=== PATIENT | male | born 1990 | race Hispanic/Latino ===

== ENCOUNTER 2018-02-15 01:39 | Emergency (ER) | payer BC ==
--- NOTE | 2018-02-15 01:57 | ER ---
Nurse's Notes [facility] Name: Tevin Daily Age: 28 yrs Sex: Male : 1990 Arrival Date: 02/15/2018 Time: 01:40 Bed 6 Private MD: Diagnosis: Foreign body in ear Presentation: 02/15 01:45 Presenting complaint: Patient states: that there is something in his left ear that fc feels as if it is flying around. Transition of care: patient was not received from another setting of care. Onset of symptoms was February 15, 2018 at 01:15. Risk Assessment: Do you want to hurt yourself or someone else? Patient reports no desire to harm self or others. Initial Sepsis Screen: Does the patient meet any 2 criteria? No. Patient's initial sepsis screen is negative. Does the patient have a suspected source of infection? No. Patient's initial sepsis screen is negative. Care prior to arrival: None. 01:45 Method Of Arrival: Ambulatory 01:45 Acuity: GUIDO 5 Triage Assessment: 01:45 General: Appears uncomfortable, slender, Behavior is calm, cooperative, appropriate for age. Pain: Complains of pain in left ear Pain currently is 7 out of 10 on a pain scale. Quality of pain is described as aching, sharp, Pain began 30 min ago. Is continuous. EENT: Ear canal w/ foreign body noted from left ear Reports pain in left ear. Neuro: Level of Consciousness is awake, alert, obeys commands, Oriented to person, place, time, situation. Cardiovascular: No deficits noted. Respiratory: No deficits noted. GI: No deficits noted. : No deficits noted. Derm: Skin is pink, warm \T\ dry. Musculoskeletal: Circulation, motion, and sensation intact. Capillary refill < 3 seconds. Historical: - Allergies: 01:53 Amoxil; fc - Home Meds: 01:53 None [Active]; fc - PMHx: 01:53 None; fc - PSHx: 01:53 None; fc - Immunization history:: Last tetanus immunization: unknown. - Social history:: Smoking status: Patient/guardian denies using tobacco. - Ebola Screening: : Patient negative for fever greater than or equal to 101.5 degrees Fahrenheit, and additional compatible Ebola Virus Disease symptoms Patient denies exposure to infectious person Patient denies travel to an Ebola-affected area in the 21 days before illness onset. Screenin:45 Abuse screen: Denies threats or abuse. Nutritional screening: No deficits noted. Tuberculosis screening: No symptoms or risk factors identified. Fall Risk None identified. Assessment: 01:52 Reassessment: No changes from previously documented assessment. see triage assessment. Napoleon FULTON is currently at bedside to see and examine pt. 01:53 Reassessment: Napoleon FULTON removed small live bailey from pts left ear. Vital Signs: 01:45 BP 138 / 94; Pulse 66; Resp 18; Temp 98.4(O); Pulse Ox 98% on R/A; Weight 97.52 kg (R); fc Height 5 ft. 11 in. (180.34 cm) (R); Pain 7/10; 01:45 Body Mass Index 29.99 (97.52 kg, 180.34 cm) ED Course: 01:40 Patient arrived in ED. am2 01:45 Arm band placed on Patient placed in an exam room, on a stretcher. 01:45 Patient has correct armband on for positive identification. Bed in low position. Call fc light in reach. 01:45 No provider procedures requiring assistance completed. Patient did not have IV access fc during this emergency room visit. 01:50 Triage completed. 01:53 [facility] jr[facility]ace 01:53 Isiah Elkins MD is Attending Physician. jr8 Administered Medications: No medications were administered Outcome: 01:54 Discharged to home ambulatory. 01:54 Condition: good 01:56 Discharge ordered by jrJace 01:57 Discharge instructions given to patient, Instructed on discharge instructions, follow fc up and referral plans. medication usage, Demonstrated understanding of instructions, follow-up care, medications, Prescriptions given X 1. 02:01 Patient left the ED. Signatures: Bell Ponce RN RN Napoleon Lopez PA PA jr8 Elidia Jacobsen am2 Corrections: (The following items were deleted from the chart) 01:58 01:54 Discharge instructions given to patient, Instructed on discharge instructions, fc follow up and referral plans. Demonstrated understanding of instructions, follow-up care, Prescriptions given X none
--- NOTE | 2018-02-15 01:57 | EDPHYS ---
Physician Documentation [facility] Name: Tevin Daily Age: 28 yrs Sex: Male : 1990 Arrival Date: 02/15/2018 Time: 01:40 Bed 6 Private MD: ED Physician Isiah Elkins HPI: 02/15 01:54 This 28 yrs old Male presents to ER via Ambulatory with complaints of Foreign jr8 Body In Ear. 01:54 Onset: The symptoms/episode began/occurred acutely, today. The patient has not jr8 experienced similar symptoms in the past. The patient has not recently seen a physician. stated that he feels as if a bug is in his ear . Historical: - Allergies: 01:53 Amoxil; fc - Home Meds: 01:53 None [Active]; fc - PMHx: 01:53 None; fc - PSHx: 01:53 None; fc - Immunization history:: Last tetanus immunization: unknown. - Social history:: Smoking status: Patient/guardian denies using tobacco. - Ebola Screening: : Patient negative for fever greater than or equal to 101.5 degrees Fahrenheit, and additional compatible Ebola Virus Disease symptoms Patient denies exposure to infectious person Patient denies travel to an Ebola-affected area in the 21 days before illness onset. ROS: 01:54 Eyes: Negative for injury, pain, redness, and discharge, Neck: Negative for injury, jr8 pain, and swelling, Cardiovascular: Negative for chest pain, palpitations, and edema, Respiratory: Negative for shortness of breath, cough, wheezing, and pleuritic chest pain, Abdomen/GI: Negative for abdominal pain, nausea, vomiting, diarrhea, and constipation, Back: Negative for injury and pain, MS/Extremity: Negative for injury and deformity, Skin: Negative for injury, rash, and discoloration, Neuro: Negative for headache, weakness, numbness, tingling, and seizure. 01:54 ENT: Positive for foreign body sensation. Exam: 01:54 Eyes: Pupils equal round and reactive to light, extra-ocular motions intact. Lids and jr8 lashes normal. Conjunctiva and sclera are non-icteric and not injected. Cornea within normal limits. Periorbital areas with no swelling, redness, or edema. Neck: Trachea midline, no thyromegaly or masses palpated, and no cervical lymphadenopathy. Supple, full range of motion without nuchal rigidity, or vertebral point tenderness. No Meningismus. Cardiovascular: Regular rate and rhythm with a normal S1 and S2. No gallops, murmurs, or rubs. Normal PMI, no JVD. No pulse deficits. Respiratory: Lungs have equal breath sounds bilaterally, clear to auscultation and percussion. No rales, rhonchi or wheezes noted. No increased work of breathing, no retractions or nasal flaring. Skin: Warm, dry with normal turgor. Normal color with no rashes, no lesions, and no evidence of cellulitis. MS/ Extremity: Pulses equal, no cyanosis. Neurovascular intact. Full, normal range of motion. Neuro: Awake and alert, GCS 15, oriented to person, place, time, and situation. Cranial nerves II-XII grossly intact. Motor strength 5/5 in all extremities. Sensory grossly intact. Cerebellar exam normal. Normal gait. 01:54 ENT: Exam is negative for earache, ear discharge, TM abnormalities, nasal discharge, pharyngitis, exudate, abnormal voice, abnormal breath odor, Ear canal(s): foreign body, an insect, in the left external ear canal. Vital Signs: 01:45 BP 138 / 94; Pulse 66; Resp 18; Temp 98.4(O); Pulse Ox 98% on R/A; Weight 97.52 kg (R); fc Height 5 ft. 11 in. (180.34 cm) (R); Pain 7/10; 01:45 Body Mass Index 29.99 (97.52 kg, 180.34 cm) Procedures: 01:54 Foreign Body Removal: an insect, from the left ear canal, by using alligator clamps, jr8 The patient tolerated the removal well. MDM: 01:53 Patient medically screened. jr8 01:54 Data reviewed: vital signs, nurses notes, and as a result, I will discharge patient. jr8 Data interpreted: Pulse oximetry: on room air is 98 %. Interpretation: normal. Counseling: I had a detailed discussion with the patient and/or guardian regarding: the historical points, exam findings, and any diagnostic results supporting the discharge/admit diagnosis, the need for outpatient follow up, a family practitioner, to return to the emergency department if symptoms worsen or persist or if there are any questions or concerns that arise at home. Administered Medications: No medications were administered Disposition: 09:21 Co-signature as Attending Physician, Isiah Elkins MD I agree with the assessment and [facility] plan of care. Disposition: 02/15/18 01:56 Discharged to Home. Impression: Foreign body in ear. - Condition is Stable. - Discharge Instructions: Ear Foreign Body. - Prescriptions for Cortisporin 3.5- 10,000-1 mg/mL-unit/mL-% Otic solution - instill 4 drop by OTIC route 3 times per day for 3 days; 1 bottle. - Medication Reconciliation Form, Thank You Letter, Antibiotic Education, Prescription Opioid Use form. - Follow up: Private Physician; When: As needed; Reason: Recheck today's complaints, Continuance of care, Re-evaluation by your physician. - Problem is new. - Symptoms have improved. Signatures: Isiah Elkins MD MD cha Chretien, Felicia, RN RN Napoleon Recinos PA PA jr8 Corrections: (The following items were deleted from the chart) 02:01 01:56 02/15/2018 01:56 Discharged to Home. Impression: Foreign body in ear. Condition fc is Stable. Forms are Medication Reconciliation Form, Thank You Letter, Antibiotic Education, Prescription Opioid Use. Follow up: Private Physician; When: As needed; Reason: Recheck today's complaints, Continuance of care, Re-evaluation by your physician. Problem is new. Symptoms have improved. jr8
== END 2018-02-15 02:01 | disposition home or self-care (01) ==
LOC: ER 01:39
PROC: 09C4XZZ Extirpation of Matter from Left External Auditory Canal, External Approach (ICD-10-PCS; principal; 2018-02-15)
DX: T16.2XXA Foreign body in left ear, initial encounter (principal); Z88.1 Allergy status to other antibiotic agents
CPT/HCPCS: 99282